=== PATIENT | male | born 2000 | race Caucasian/White ===

== ENCOUNTER 2021-05-29 01:46 | Inpatient (IN) | payer OTHER ==
[~2021-05-29] VITALS: Ht 180.3 cm; Wt 66.9 kg
[2021-05-29] MEDS ORDERED: MIDAZOLAM 1 MG/ML, 5ML IVPush ONE (02:00)
[2021-05-29] MEDS ORDERED: SODIUM CHLORIDE FLUSH 10ML SYR IVF ONE (02:00)
--- NOTE | 2021-05-29 02:04 | NUR ---
pt bib remsa with c/o witnessed cardiac arrest, ems did 2 rounds of cpr after giving narcan 2 mg io, rosc was attained and pt became combative, upon arrival pt is able to answer questions two 18 g pin in each ac ivf running, io to right jimenez, pt admitted to snorting percocets pt combative on arrival
--- NOTE | 2021-05-29 02:12 | NUR ---
family at bedside, mom and brother
[2021-05-29] MEDS ORDERED: MIDAZOLAM 1 MG/ML, 2ML ONE (02:15)
--- NOTE | 2021-05-29 02:19 | NUR ---
DR SALGADO AT BEDSIDE DISCUSSING POC WITH FAMILY
[2021-05-29] MEDS ORDERED: SODIUM CHLORIDE 0.9% 1,000ML IVBOLUS ONE ×2 (02:30)
[2021-05-29 02:31] LABS: MEAN CORPUSCULAR HEMOGLOBIN 30.9 pg (27.5-34.5); MEAN PLATELET VOLUME 7.6 fL (7.4-10.4); PLATELET COUNT 324 x10^3/uL (130-400); RED BLOOD COUNT 4.88 x10^6/uL (4.38-5.82); RED CELL DISTRIBUTION WIDTH 13.5 % (9.4-14.8)
--- NOTE | 2021-05-29 02:38 | NUR ---
IN AND OUT CATH FOR URINE WALKED TO LAB, PT RESPONDED BY LIFTING HEAD WITH EYES OPENED
[2021-05-29 02:39] LABS: ALANINE AMINOTRANSFERASE 130 U/L (12-78); ANION GAP 14 mmol/L (5-15); CHLORIDE 102 mmol/L (98-107)
[2021-05-29 02:44] LABS: ALKALINE PHOSPHATASE 119 U/L (45-117); BILIRUBIN,TOTAL 0.7 mg/dL (0.2-1.0); TOTAL PROTEIN 7.6 g/dL (6.4-8.2); TROPONIN I 0.033 ng/mL (0.000-0.045)
[2021-05-29 02:49] LABS: MICROSCOPIC AUTO
[2021-05-29 02:51] LABS: BAND#(MANUAL) 3.66 x10^3/uL; BANDS%(MANUAL) 16 % (0-7); LYMPHS% (MANUAL) 7 % (22-44); METAMYELOCYTES# (MANUAL) 0.23 x10^3/uL (0-0); METAMYELOCYTES% (MANUAL) 1 % (0-1); MONOS#(MANUAL) 0.69 x10^3/uL (0.3-2.7); MONOS% (MANUAL) 3 % (2-9); MYELOCYTES# (MANUAL) 0.23 x10^3/uL (0-0); MYELOCYTES% (MANUAL) 1 % (0-0); SEG#(MANUAL) 16.49 x10^3/uL (1.8-8); SEGS% (MANUAL) 72 % (42-75)
[2021-05-29 02:52] LABS: <PLATELET ESTIMATE> ADEQUATE; <PLT MORPHOLOGY> NORMAL PLT MORPH; <RBC MORPHOLOGY> NORMAL
[2021-05-29 02:58] LABS: AMPHETAMINE SCREEN, URINE Negative (Negative); BARBITURATE SCREEN, URINE Negative (Negative); BENZODIAZEPINE SCREEN, URINE Positive (Negative); CANNABINOID SCREEN, URINE Negative (Negative); COCAINE SCREEN, URINE Negative (Negative); METHADONE SCREEN, URINE Negative (Negative); OPIATE SCREEN, URINE Negative (Negative)
[2021-05-29 03:15] LABS: SALICYLATE LEVEL < 1.7 mg/dL (2.8-20.0)
[2021-05-29] MEDS ORDERED: LAMO200T3 PO (03:23)
--- NOTE | 2021-05-29 03:24 | NUR ---
DR SALGADO AWARE OF BP CONTINUING WITH FLUIDS AT THIS TIME
[2021-05-29] MEDS ORDERED: SODIUM CHLORIDE 0.9% 1,000 ML IV ONE (03:30)
[2021-05-29] MEDS ORDERED: ONDANSETRON 2MG/ML, 2ML ONE (04:05)
--- NOTE | 2021-05-29 04:08 | NUR ---
ZOFRAN FOR NAUSEA GIVEN PER MAR
[2021-05-29] MEDS ORDERED: ONDANSETRON 2MG/ML, 2ML IVPush ONE (04:30)
--- NOTE | 2021-05-29 04:38 | NUR ---
PT AWAKENS EASILY TO VERBAL STIMULI, PT COOPERATIVE AND PLEASENT
[2021-05-29] MEDS ORDERED: PHARMACY MAY ADJ FOR RENAL FX MC PRN (05:00)
[2021-05-29] MEDS: LACTATED RINGERS 1,000 ML IV SCH ×3 (05:08→23:11)
--- NOTE | 2021-05-29 05:09 | NUR ---
BLOOD CULTURES DRAWN BY LAB AT THIS TIME
[2021-05-29] MEDS: PIPERACILLIN/TAZO 3.375 GM in DEXTROSE 5% 50 ML IV SCH ×4 (05:19→23:12)
[2021-05-29] MEDS ORDERED: NALOXONE 0.4 MG/ML, 1ML ONE (05:32)
--- NOTE | 2021-05-29 05:41 | NUR ---
NARCAN GIVEN PER MD ORDER SEE VS
[2021-05-29] MEDS: NALOXONE 4 MG in SODIUM CHLORIDE 0.9% 246 ML IV SCH ×2 (05:58→16:00)
--- NOTE | 2021-05-29 05:58 | NUR ---
PT STARTEDON NARCAN GTT AT THIS TIME
[2021-05-29] MEDS ORDERED: NALOXONE 0.4 MG/ML, 1ML IVPush ONE (06:00)
[2021-05-29] MEDS ORDERED: LACTATED RINGERS 1,000 ML IVBOLUS ONE (06:00)
[2021-05-29] MEDS ORDERED: NOREPINEPHRINE 8 MG in SODIUM CHLORIDE 0.9% 242 ML IV PRN (06:30)
[2021-05-29] MEDS ORDERED: VANCOMYCIN PER PHARMACY MC PRN (06:30)
--- NOTE | 2021-05-29 06:33 | NUR ---
BP NO RESPONDING TO NARCAN LEVOPHED SATRTED AT THIS TIME
--- NOTE | 2021-05-29 07:12 | NUR ---
REPORT RECEIVED FROM ROBIN GILMORE. RATES VERIFIED. PT BP STABLE W/ NARCAN AND LEVO DRIP. PT A&OX4. RESTING ON GURNEY W/ EYES CLOSED. NADN. AWAITING ICU ADMIT.
--- NOTE | 2021-05-29 07:30 | NUR ---
PER PREVIOUS RN. PT HAD 200ML OUTPUT URINE.
--- NOTE | 2021-05-29 07:46 | NUR ---
cardiac rhythm strip printed and placed on chart.
--- NOTE | 2021-05-29 07:52 | NUR ---
PT SCOOTED SELF ONTO ICU BED. CPR PADS REMOVED. VSS, NADN.
[2021-05-29 08:22] VITALS: BP 115/67
[2021-05-29 08:23] LABS: SALICYLATE LEVEL < 1.7 mg/dL (2.8-20.0)
--- NOTE | 2021-05-29 08:31 | NUR ---
PT TRANSFERED TO CCU W/ RUIZ RN AND JULIANNE RN. PT NORMOTENSIVE UPON ARRIVAL, YANG CAMARENA. PT AROUSABLE TO TOUCH, ANSWERS QUESTIONS APPROPRIATELY.
[2021-05-29] MEDS ORDERED: ACETAMINOPHEN 325 MG TABLET PO PRN (09:30)
[2021-05-29] MEDS ORDERED: IBUPROFEN 200 MG TABLET PO PRN (09:30)
[2021-05-30] MEDS: NALOXONE 4 MG in SODIUM CHLORIDE 0.9% 246 ML IV SCH (02:00)
[2021-05-30 04:49] LABS: BASOPHILS % (AUTO) 0 % (0-1); EOSINOPHILS % (AUTO) 3 % (1-7); LYMPHOCYTES % (AUTO) 16 % (22-44); MEAN CORPUSCULAR HEMOGLOBIN 31.5 pg (27.5-34.5); MEAN CORPUSCULAR HGB CONC 34.1 g/dL (33.2-36.2); MEAN PLATELET VOLUME 7.6 fL (7.4-10.4); MONOCYTES % (AUTO) 10 % (2-9); NEUTROPHILS % (AUTO) 71 % (42-75); PLATELET COUNT 213 x10^3/uL (130-400); RED BLOOD COUNT 4.22 x10^6/uL (4.38-5.82); RED CELL DISTRIBUTION WIDTH 13.3 % (9.4-14.8)
[2021-05-30 04:55] LABS: ALBUMIN 2.9 g/dL (3.4-5.0); CALCIUM 7.9 mg/dL (8.5-10.1)
[2021-05-30 04:58] LABS: ALANINE AMINOTRANSFERASE 70 U/L (12-78); ALKALINE PHOSPHATASE 68 U/L (45-117); BILIRUBIN,TOTAL 0.8 mg/dL (0.2-1.0); CREATININE 0.63 mg/dL (0.7-1.3); TOTAL PROTEIN 5.8 g/dL (6.4-8.2)
[2021-05-30 05:06] LABS: CHLORIDE 107 mmol/L (98-107)
[2021-05-30 05:07] LABS: ANION GAP 3 mmol/L (5-15)
[2021-05-30] MEDS: PIPERACILLIN/TAZO 3.375 GM in DEXTROSE 5% 50 ML IV SCH (05:22)
[2021-05-30] MEDS: LACTATED RINGERS 1,000 ML IV SCH (07:00)
[2021-05-30] MEDS ORDERED: AMOX1TAB61 PO (07:24)
== END 2021-05-30 10:20 | disposition home or self-care (01) | DRG 917 ==
LOC: ED 02:53 → EDIP 03:46 → CCU 08:16
PROVIDERS: ADMIT Family Medicine; ATTEND Internal Medicine
PROC: 5A12012 Performance of Cardiac Output, Single, Manual (ICD-10-PCS; principal; 2021-05-29)
DX: T39.1X1A Poisoning by 4-Aminophenol derivatives, accidental (unintentional), initial encounter (principal); I46.9 Cardiac arrest, cause unspecified; J69.0 Pneumonitis due to inhalation of food and vomit; J96.01 Acute respiratory failure with hypoxia; E87.2 Acidosis; N17.9 Acute kidney failure, unspecified; E11.65 Type 2 diabetes mellitus with hyperglycemia; F17.210 Nicotine dependence, cigarettes, uncomplicated; F20.9 Schizophrenia, unspecified; F31.9 Bipolar disorder, unspecified; R74.01 Elevation of levels of liver transaminase levels; Z20.822 Contact with and (suspected) exposure to COVID-19; T40.2X1A Poisoning by other opioids, accidental (unintentional), initial encounter
CPT/HCPCS: 36415; 71045; 80053; 80074; 80299; 80307; 80320; 80329; 81001; 83036; 83605; 83690; 84145; 84484; 85025; 86592; 87040; 87081; 87086; 87806; 93005; 96361; 96374; G0378; J2250; J2310; J2405; J2543; U0005; G0475; G0480; J7030; J7050; J7120; U0003